=== PATIENT | male | born 1980 | race Caucasian/White ===

== ENCOUNTER 2023-04-16 20:26 | Emergency (ER) | payer MEDICAID, SELFPAY ==
[2023-04-16 20:38] VITALS: BP 123/74; PULSE 74; RESP 17; TEMP 37.3; O2SAT 97; BMI 41.8
[2023-04-16 21:02] VITALS: BP 143/82; PULSE 75; TEMP 36.8; O2SAT 94
--- NOTE | 2023-04-16 21:08 | XRR_ITS ---
PROCEDURE INFORMATION: Exam: XR Chest Exam date and time: 04/16/2023 9:27 PM Age: 42 years old Clinical indication: Shortness of breath; Patient HX: C/O SOB TECHNIQUE: Imaging protocol: Radiologic exam of the chest. Views: 1 view. COMPARISON: No relevant prior studies available. FINDINGS: Lungs: Unremarkable. No consolidation. Pleural spaces: Unremarkable. No pleural effusion. No pneumothorax. Heart/Mediastinum: 6.4 x 3.3 cm right paratracheal soft tissue thickening suggesting possible lymphoma versus other lesion. CT chest with contrast may be helpful for complete evaluation. Bones/joints: Unremarkable. XR/XR chest 1V portable [id number] IMPRESSION: 6.4 x 3.3 cm right paratracheal soft tissue thickening suggesting possible lymphoma versus other lesion. CT chest with contrast may be helpful for complete evaluation.
[2023-04-16 21:09] VITALS: O2SAT 95
[2023-04-16 21:54] LABS: Influenza A by IFA negative (Negative); Influenza B by IFA negative (Negative)
[2023-04-16 21:56] LABS: SARS Covid-2 Antigen positive (Negative)
[2023-04-16 22:09] VITALS: BP 132/60; PULSE 75; RESP 16; O2SAT 94
--- NOTE | 2023-04-17 05:49 | ED_ITS ---
HPI - COVID General: Chief Complaint: COVID symptoms Stated Complaint: Headache\SOB\Conjested Time Seen by Provider: 04/16/23 21:04 History of Present Illness: 42-year-old male with a history of pneumonia he says. No ongoing health problems. He presents with cough, chills, congestion today. Symptoms essentially started today, although he has had nausea the day prior. No known sick contacts. COVID 19 common symptoms: positive non-productive cough, dyspnea, throat pain and nasal congestion; negative fever(s), chills, productive cough, body aches, headache(s), nausea, vomiting or diarrhea COVID 19 other sytmptoms: negative chest pain, confusion or dizziness COVID Results: SARS-CoV-2 Antigen (Rapid) positive (Negative) H 04/16/23 21:3 1 Review of Systems Const: Denies: fever(s), chills or body aches Eyes: Denies: change in vision ENMT: Reports: throat pain, nasal congestion and post nasal drip; Denies: swelling of lips/tongue or ear discharge Card: Denies: chest pain or palpitations Resp: Reports: dyspnea, non-productive cough and chest congestion; Denies: productive cough or wheezing GI: Denies: abdominal pain, nausea, vomiting, diarrhea or hematochezia Skin/Breast: Denies: rash Neuro: Denies: headache(s), weakness in extremities, dizziness or confusion Physical Exam Const: COMMON NORMALS: no acute distress GENERAL APPEARANCE: cooperative; not ill appearing and not frail appearing HENMT: COMMON NORMALS: normocephalic, atraumatic and Normal external nose present HEAD & SCALP: normocephalic and atraumatic FACE & SINUS: normal facial exam and face symmetric NOSE: Normal external nose present Eye: COMMON NORMALS: Equal, round and reactive pupils present and EOMs intact bilaterally PUPIL: Yes Equal, round and reactive pupils present Neck/C-Spine: GENERAL: Yes trachea midline Chest: CHEST: Yes Symmetrical chest wall rise Resp: COMMON NORMALS: normal respiratory effort, No retractions, No use of accessory muscles and clear to auscultation bilaterally AUSCULTATION: clear to auscultation bilaterally Cardio: COMMON NORMALS: regular rate and regular rhythm RATE: regular rate RHYTHM: regular rhythm GI: COMMON NORMALS: Normal to inspection, nondistended, normoactive bowel sounds present Extremity: COMMON NORMALS: no pedal edema Neuro: GUIDO COMA SCALE: document GCS findings [place] coma scale eye opening: Spontaneous [place] coma scale verbal response: Orientated [place] coma scale motor response: Obey commands Guido coma scale total score: 15 SENSORY EXAM: Yes extremities (intact) Psych: COMMON NORMALS: speech normal SPEECH: Yes normal speech Skin: COMMON NORMALS: no rashes or lesions noted GENERAL SKIN EXAM: no rashes or lesions noted Course Vital Signs: Vital signs: Vital Signs Temperature 98.3 F 04/16/23 21:02 Pulse Rate 75 04/16/23 22:09 Respiratory Rate 16 04/16/23 22:09 Blood Pressure 132/60 04/16/23 22:09 Pulse Oximetry 94 04/16/23 22:09 Oxygen Delivery Me thod Room Air 04/16/23 21:09 MDM - COVID Medical Decision Making X-rays negative for infiltrate. Evidently there is a 6.4 x 3. 3 paratracheal soft tissue thickening, possibly a mass. His COVID-19 rapid is positive. He will be treated with antivirals. Outpatient follow-up. Lab Data Radiology Impressions Chest X-Ray 04/16/23 21:08 IMPRESSION: 6.4 x 3.3 cm right paratracheal soft tissue thickening suggesting possible lymphoma versus other lesion. CT chest with contrast may be helpful for complete evaluation. Laboratory Results Influenza Type A Ag negative (Negative) 04/16/23 21:31 Influenza Type B Ag negative (Negative) 04/16/23 21:31 SARS-CoV-2 Ag (Rapid) positive (Negative) H 04/16/23 21:31 SARS-CoV-2 Antigen (Rapid) positive (Negative) H 04/16/23 21:3 1 XR interpretation done by ED provider, pending radiology final review Discharge Plan Discharge Patient Disposition: Home Clinical Impression: COVID-19 Condition: Stable Prescriptions: New Paxlovid 300 mg (150 mg x 2)-100 mg tablets,dose pack See Rx Instructions .ROUTE .COMPLEX Qty: 30 0RF Rx Instructions: take TWO 150 mg tablets of nirmatrelvir with ONE 100 mg tablet of ritonavir twice daily for 5 days Discharge Orders: Discharge ED (Routine); Ordered 04/16/23 Ordered By: Toni Barr Referrals: White,Shannon, PRODUCT SAFETY MANAGER [Primary Care Provider] - 4-7 days Patient Instructions: COVID-19 (Coronavirus Disease 2019) (ED) Activity Restrictions/Additional Instructions: Medications as directed. Return for worsening symptoms despite treatment. Coding Level of Care Code ED Senior Control Systems Engineer for Denae Wheeler
== END 2023-04-16 22:14 | disposition home or self-care (01) ==
PROVIDERS: Emergency Provider Emergency Medicine; PCP Nurse Practitioner Family
DX: U07.1 COVID-19 (principal)
CPT/HCPCS: 71045; 87426; 87804; 99284

== ENCOUNTER 2023-04-21 06:42 | Outpatient (CLI) | payer MEDICAID, SELFPAY ==
--- NOTE | 2023-04-21 07:00 | CT_ITS ---
WS: [id number] CT chest w con* [id number] HISTORY: LUNG MASS TECHNIQUE: Axial imaging performed through the thorax. Coronal and sagittal reformats are submitted. All CT scans at [facility] [place] use at least one of these dose optimization techniques: automated exposure control; mA and/or kV adjustment per patient size (includes targeted exams where dose is mat ched to clinical indication); or iterative reconstruction. CONTRAST: Omnipaque 350; 100 mL IV. DLP: 835.56 mGy.cm COMPARISON: Chest radiograph 04/16/2023 Lungs and central airway: Lung volumes are decreased due to poor inspiratory effort. There is mild in terstitial thickening and hazy attenuation which are probably improved with a better inspiratory effo rt. This also may be related to acute mild respiratory bronchiolitis. No dense consolidations or pneu monia. Benign granuloma LEFT lung base. There are a few small micronodules in the LEFT lung. No mass. Pleura: Normal. No pleural effusion. Heart and pericardium: Heart is slightly enlarged. No pericardial effusion. Mediastinum and vickie: No adenopathy. Previously described fullness along the RIGHT paratracheal regio n is probably related to the technique used for the portable radiograph. Vessels: Abnormal configuration of the aortic arch. There is a right-sided aortic arch. There is a Ko mmerell diverticulum and a probable very narrow communication with an aberrant LEFT subclavian artery . The descending aorta is causing mass effect and displacement of the esophagus is typically seen. Haim th carotid arteries are patent. The SVC is normally positioned. Normal pulmonary artery. No vascular malformation or abnormality is noted involving the heart on this examination. Chest wall and lower neck: Mild gynecomastia. Upper abdomen: Normal. Osseous structures: Mild segmentation of the sternum. No destructive bone lesions. IMPRESSION: 1. RIGHT paratracheal soft tissue mass described by recent chest radiograph corresponds to a right-si ded aortic arch. 2. 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 This is c ausing mass effect and displacement on the posterior esophagus. Recommend follow-up with vascular shaun jackelyn especially if the patient is symptomatic. 3. Mild hazy interstitial thickening probably related to respiratory bronchiolitis. No pneumonia.
[2023-04-21] MEDS: iohexol 350 mg/mL 500 mL Btl (per mL) IV (07:14)
== END 2023-04-21 06:43 | disposition home or self-care (01) ==
LOC: RAD 06:42
PROVIDERS: PCP Nurse Practitioner Family; Visit Provider Nurse Practitioner Family
DX: R91.8 Other nonspecific abnormal finding of lung field (principal)
CPT/HCPCS: 71260; Q9967

== ENCOUNTER 2023-08-18 07:30 | Outpatient (CLI) | payer MEDICAID, SELFPAY ==
--- NOTE | 2023-08-18 07:36 | XRR_ITS ---
PROCEDURE INFORMATION: Exam: XR Left Knee Exam date and time: 08/18/2023 7:54 AM Age: 42 years old Clinical indication: Left; Prior surgery; Surgery date: 6+ months; Surgery type: Tkr; Patient HX: Pain since second surgery on knee last year; Additional info: Oa left TECHNIQUE: Imaging protocol: Radiologic exam of the left knee. Views: 3 views. COMPARISON: No relevant prior studies available. FINDINGS: Bones/joints: No acute fracture or dislocation is noted. Left knee arthroplasty, as below. Soft tissues: Mild knee swelling. XR/XR knee LT 3V* [id number] IMPRESSION: 1. No acute fracture or dislocation. 2. There is minimal lucency on the frontal view of the tibial prosthetic component between the bone and the hardware. Advise correlation. This is of uncertain significance and may represent expected postop changes.
== END 2023-08-18 07:31 | disposition home or self-care (01) ==
LOC: RAD 07:33
PROVIDERS: PCP Nurse Practitioner Family; Visit Provider Nurse Practitioner Family
DX: M17.12 Unilateral primary osteoarthritis, left knee (principal)
CPT/HCPCS: 73562

== ENCOUNTER 2024-10-04 08:13 | Outpatient (CLI) | payer MEDICAID, SELFPAY ==
--- NOTE | 2024-10-04 08:20 | CT_ITS ---
WS: [id number] CTA THORACIC TECHNIQUE: Contrast enhanced CTA of the thoracic aorta with coronal and sagittal reformatted images and maximum intensity projection (MIP) images. CLINICAL INFORMATION: ESOPHAGEAL OBSTRUCTION COMPARISON: CT chest 04/21/2023 DLP: 1298.[address] scans at [facility] use at least one of these dose optimization techniques: automated exposure control; mA and/or kV adjustment per patient size (includes targeted exams where dose is matched to clinical indication); or iterative reconstruction. FINDINGS: RIGHT side aortic arch with aberrant LEFT subclavian artery with Kommerell diverticulum. This is similar in appearance to previous. Mild mass effect on the posterior esophagus. Nodular RIGHT thyroid. Subclavian arteries are patent. No mediastinal or hilar lymphadenopathy. No axillary lymphadenopathy. Fatty liver. Normal portal vein and splenic vein. Distended stomach with food products. Adrenal glands are normal. Celiac and SMA are patent. Lungs are well aerated. No acute pulm infiltrates. A few tiny scattered micronodules. CT/CT angio chest [id number] IMPRESSION: 1. Stable previously described RIGHT aortic arch with aberrant subclavian thelma ry and Kommerell diverticulum. 2. Persistent mild mass effect on the dorsal esophagus. 3. Mild left-right narrowing of the upper thoracic trachea unchanged 4. Slightly nodular RIGHT thyroid. This can be further evaluated with thyroid ultrasound. 5. Lungs are well aerated. 6. Fatty liver. 7. No other significant interval changes.
[2024-10-04] MEDS: iohexol 350 mg/mL 500 mL Btl (per mL) IV (08:56)
== END 2024-10-04 08:14 | disposition home or self-care (01) ==
PROVIDERS: PCP Nurse Practitioner Family; Visit Provider Surgery
DX: K22.2 Esophageal obstruction (principal); R93.89 Abnormal findings on diagnostic imaging of other specified body structures; K76.0 Fatty (change of) liver, not elsewhere classified
CPT/HCPCS: 71275